=== PATIENT | male | born 1970 | race Caucasian/White ===

== ENCOUNTER 2017-11-05 11:57 | Day surgery (SDC) | payer OTHER ==
[2017-10-21 18:16] VITALS: BMI 25.1
[2017-11-05] MEDS ORDERED: PROPOFOL 20 ML ONE (13:35)
[2017-11-05] MEDS ORDERED: MIDAZOLAM HCL 2 MG/2 ML SINGLE DOSE VIAL ONE (13:35)
[2017-11-05] MEDS ORDERED: ONDANSETRON 4 MG/2 ML VIAL ONE (13:39)
[2017-11-05] MEDS ORDERED: DEXAMETHASONE SOD PHOSPHATE 4 MG/1 ML VIAL ONE (13:39)
[2017-11-05] MEDS ORDERED: KETOROLAC TROMETHAMINE 30 MG/1 ML VIAL ONE (13:39)
[2017-11-05] MEDS ORDERED: ceFAZolin SODIUM 1 GM VIAL ONE (13:39)
[2017-11-05 14:52] VITALS: TEMP 97.6
[2017-11-05] MEDS ORDERED: ONDANSETRON 4 MG/2 ML VIAL IVPUSH PRN (15:08)
[2017-11-05] MEDS ORDERED: PROMETHAZINE HCL 25 MG/1 ML VIAL IVPUSH PRN (15:08)
[2017-11-05] MEDS ORDERED: oxyCODONE HCL 5 MG TABLET PO PRN ×2 (15:08)
[2017-11-05 15:19] VITALS: BP 106/68; PULSE 61
--- NOTE | 2017-11-07 17:22 | PATH ---
Surgical Pathology Report Patient Name: LEONILA MARTINO [facility]. Rec. #: [id number] /Age/Gender: 1970 (Age: 47) / M Account: [id number] [facility] Taken: 11/05/2017 Received: 11/05/2017 Reported: 11/07/2017 Physicians: Rom Parker M.D. Specimen(s) Received LEFT LONG FINGER MASS Clinical History Left long finger mass Final Diagnosis LEFT LONG FINGER MASS, EXCISION: FIBROCONNECTIVE TISSUE SHOWING ACUTE AND CHRONIC INFLAMMATION, OLD HEMORRHAGE (HEMOSIDERIN-LADEN HISTIOCYTES), VASCULARIZATION, AND DENSE FIBROSIS. Electronically Signed Melissa Villagran M.D. Gross Description Received in formalin labeled "left long finger mass," is a 1.2 x 1.1 x 0.4 cm aggregate of 2 haynes portions of soft tissue. The larger portion is bisected and the specimen is entirely submitted in one cassette. 11/06/2017 saudi11/06/2017
--- NOTE | 2017-11-11 08:06 | OP ---
DATE OF OPERATION: 11/05/2017 PREOPERATIVE DIAGNOSIS: Left long finger mass. POSTOPERATIVE DIAGNOSIS: Left long finger mass. OPERATIVE PROCEDURE: Left long finger mass excision. SURGEON: Rom Parker MD ANESTHESIA: Local with sedation. COMPLICATIONS: None. ESTIMATED BLOOD LOSS: Minimal. INDICATION FOR PROCEDURE: The patient is a 47-year-old male who is status post flexor tendon repair from finger laceration. He presented with a mass in the finger and was indicated for operative treatment. Risks, benefits, and alternatives were discussed with patient at length. Proper informed consent was obtained. PROCEDURE: After proper identification of the patient and the correct operative site, the patient was brought to the operating room and placed supine on the operative table. Prominences were well padded. Sedation and local anesthesia were given. The left upper extremity was prepped and draped in usual sterile fashion. A well-padded tour was placed with a sterile prep. Esmarch bandage to exsanguinate the left upper extremity. Tourniquet was inflated to 250 mmHg. The mass was found over the pulp of the distal phalanx volarly. Incision was taken sharply through the skin with blunt and sharp dissection through the subcutaneous tissues. The mass was found to be what appeared to be a foreign body reaction and was excised in whole along with a small suture. Flexor tendon remained intact and was well established in its feeling. Wound was irrigated with saline and repaired with a 5-0 nylon suture. Sterile dressings were applied. Patient was reversed from anesthesia and brought to recovery room in stable condition. He tolerated the procedure well. Stanley LECHUGA/[id number]
== END 2017-11-05 15:22 | disposition home or self-care (01) ==
LOC: FASU 11:57
PROVIDERS: ATTEND Orthopaedic Surgery Hand Surgery
PROC: 0JBK0ZZ Excision of Left Hand Subcutaneous Tissue and Fascia, Open Approach (ICD-10-PCS; principal; 2017-11-05 13:50)
DX: D21.11 Benign neoplasm of connective and other soft tissue of right upper limb, including shoulder (principal)
CPT/HCPCS: 88305-TC; 94760